=== PATIENT | female | born 1960 | race Caucasian/White ===

== ENCOUNTER 2018-05-03 14:26 | Emergency (ER) | payer OTHER ==
[~2018-05-03] VITALS: Ht 157.5 cm; Wt 52.3 kg
[~2018-05-03 14:26] MED LIST: ACETAMINOPHEN500 MG PO; ALBUTEROL SULF8.5 GM IH; ALPRAZOLAM0.5 MG PO; AMBIEN10 MG PO; ASPIR 8181 M1 PO; ASPIR-LOW81 MG PO; BENADRYL50 MG PO; BENTYL20 MG PO; DAILY VALUE1 EACH PO; ELAVIL10 MG PO; ENDOCET 10-3251 EACH PO; FLOVENT 44120 INHALA IH; HYDROCHLOROTHIA25 MG PO; HYDROCODON-ACE1 EAC4; HYDROXYZINE HCL50 MG PO; HYDROXYZINE PAM25 MG PO; HYDROXYZINE PAM50 MG PO; KEFLEX500 MG PO; KLONOPIN0.5 M1 PO; LEXAPRO10 MG PO; LOPRESSOR100 M1 PO; LOPRESSOR25 MG PO; Lipitor PO; METHADONE5 MG PO; MIRTAZAPINE15 MG PO; MIRTAZAPINE30 MG PO; MIRTAZAPINE45 MG PO; MORPHINE SULFAT15 M1 PO; MULTIPLE VITAM1 EACH PO; NORCO 5/3251 TABLET PO; NORVASC5 MG PO; OXYCODONE HCL10 MG PO; OXYCODONE HCL5 MG PO; PEPCID20 MG PO; PERCOCET 5/31 TABLET PO; PRAVASTATIN SOD40 MG PO; PRAVASTATIN SOD80 MG PO; PREDNISONE50 MG PO; PRILOSEC40 MG PO; SUCRALFATE1 GM PO; TESSALON PERLE100 MG PO; TOPAMAX25 MG PO; TOPROL XL100 MG PO; TRAZODONE HCL100 MG PO; XANAX0.5 MG PO; XANAX1 MG PO; Xanax PO; ZOFRAN ODT4 MG PO; ZOFRAN ODT8 MG PO; ZOFRAN8 MG PO; ZOLPIDEM TARTRAT5 MG PO; oxyCODONE PO
[2018-05-03 15:15] LABS: BASOPHIL (%) 0.4 % (0-1); EOSINOPHIL (%) 1.7 % (0-5); EOSINOPHIL COUNT 0.2 K/uL (0-0.3); HEMATOCRIT 46.1 % (36.0-46.0); HEMOGLOBIN 16.2 G/DL (11.9-15.5); IMMATURE GRANULOCYTE (%) 0.4 % (0.0-0.7); LYMPHOCYTE (%) 17.7 % (15-42); MCH 31.9 PG (29.0-34.0); MCHC 35.1 G/DL (30.0-36.0); MCV 90.7 FL (83-99); MONOCYTE COUNT 0.6 K/uL (0-0.8); NEUTROPHIL (%) 74.8 % (45-76); NEUTROPHIL COUNT 8.5 K/uL (1.8-6.4); PLATELET COUNT 283 K/uL (156-360); RBC DIS.WIDTH-CV 13.7 % (11.8-14.6); RBC DIS.WIDTH-SD 46.5 % (39-53); RED BLOOD COUNT 5.08 M/uL (3.80-5.20); WHITE BLOOD COUNT 11.3 K/uL (4.1-10.2)
[2018-05-03 15:28] LABS: ALBUMIN 4.2 g/dL (3.2-4.8); CHLORIDE 109 mEq/L (99-109); POTASSIUM 3.7 mEq/L (3.7-5.4); SODIUM 141 mEq/L (136-147)
[2018-05-03 15:30] LABS: GLUCOSE 106 mg/dL (70-99)
[2018-05-03 15:32] LABS: TOTAL BILIRUBIN 1.1 mg/dL (0.0-1.0)
[2018-05-03 15:34] LABS: ALKALINE PHOSPHATASE 99 IU/L (3-129); CREATININE 0.7 mg/dL (0.6-1.3); GFR ESTIMATE (CALCULATED) > 59 mL/min/
[2018-05-03 15:35] LABS: UREA NITROGEN (BUN) 8 mg/dL (9-23)
[2018-05-03 15:36] LABS: AST (GOT) 15 IU/L (2-34)
[2018-05-03 15:37] LABS: ALT (GPT) 13 IU/L (3-49)
[2018-05-03 15:43] LABS: TROP-I INTERPRETATION NEGATIVE; TROPONIN-I 0.01 ng/mL (0.0-0.30)
[2018-05-03 17:20] LABS: APPEARANCE CLEAR/COLORLESS; CSF TUBE NUMBER TUBE #4
[2018-05-03 17:25] LABS: CSF PROTEIN 61 mg/dL (15-45)
[2018-05-03 17:29] LABS: RED CELL COUNT 138 /MM^3 (0-1); WHITE CELL COUNT 4 /MM^3 (0-5)
[2018-05-03 17:58] LABS: CSF EOSINOPHILS ND % (0-25); CSF TUBE NUMBER (RECHECK) TUBE #1; MONONUCLEAR WBC'S ND % (50-90); POLYNUCLEAR WBC'S ND % (0-3)
[2018-05-03 17:59] LABS: APPEARANCE (RECHECK) PINK; RED CELL COUNT (RECHECK) 4000 /MM^3 (0-1)
[2018-05-03] MEDS ORDERED: XANAX0.5 MG PO (18:26)
[2018-05-03] MEDS ORDERED: LOPRESSOR100 M1 PO (18:26)
[2018-05-03 20:37] VITALS: BP 156/100
== END 2018-05-03 20:39 | disposition home or self-care (01) ==
LOC: EME 14:26
PROVIDERS: Emergency Medicine
PROC: 009U3ZX Drainage of Spinal Canal, Percutaneous Approach, Diagnostic (ICD-10-PCS; principal; 2018-05-03)
DX: R51 Headache (principal); I10 Essential (primary) hypertension; F17.200 Nicotine dependence, unspecified, uncomplicated; B19.20 Unspecified viral hepatitis C without hepatic coma; F41.9 Anxiety disorder, unspecified; Z79.82 Long term (current) use of aspirin
CPT/HCPCS: 70450; 80053; 84157; 84484; 85025; 87070; 87205; 89051; 99281; 99285; J0780; J1200; J2765; J7030; J7040

== ENCOUNTER 2018-05-06 09:17 | Emergency (ER) | payer OTHER ==
[~2018-05-06] VITALS: Ht 157.5 cm; Wt 51.1 kg
[2018-05-06 12:06] VITALS: BP 156/81
== END 2018-05-06 12:09 | disposition home or self-care (01) ==
LOC: EME 09:17
DX: R51 Headache (principal); I10 Essential (primary) hypertension; F41.9 Anxiety disorder, unspecified; F17.200 Nicotine dependence, unspecified, uncomplicated; Z79.82 Long term (current) use of aspirin
CPT/HCPCS: 99281; 99285; J1630; J1885

== ENCOUNTER 2018-05-15 11:30 | Emergency (ER) | payer OTHER ==
[~2018-05-15] VITALS: Ht 154.9 cm; Wt 53.3 kg
[2018-05-15 12:18] LABS: HEMATOCRIT 44.3 % (36.0-46.0); HEMOGLOBIN 15.4 G/DL (11.9-15.5); MCHC 34.8 G/DL (30.0-36.0); MCV 91.9 FL (83-99); RBC DIS.WIDTH-CV 13.5 % (11.8-14.6); RED BLOOD COUNT 4.82 M/uL (3.80-5.20); WHITE BLOOD COUNT 13.8 K/uL (4.1-10.2)
[2018-05-15 13:05] LABS: PLAT.SUFFICIENCY ADEQUATE; PLATELET COUNT 252 K/uL (156-360)
[2018-05-15 13:13] LABS: ALBUMIN 4.4 G/DL (3.2-4.8); ALKALINE PHOSPHATASE 78 IU/L (3-129); ALT (GPT) 15 IU/L (3-49); AST (GOT) 17 IU/L (2-34); CHLORIDE 109 MEQ/L (99-109); CREATININE 0.8 MG/DL (0.6-1.3); GFR ESTIMATE (CALCULATED) > 59 mL/min/; GLUCOSE 99 mg/dL (70-99); POTASSIUM 3.9 MEQ/L (3.7-5.4); SODIUM 142 MEQ/L (136-147); TOTAL BILIRUBIN 0.6 MG/DL (0.0-1.0); TOTAL PROTEIN 6.8 G/DL (6.4-8.3); UREA NITROGEN (BUN) 8 mg/dL (9-23)
[2018-05-15 14:06] LABS: APPEARANCE CLEAR ((CLEAR)); BILIRUBIN NEGATIVE; BLOOD SMALL; COLOR YELLOW ((YELLOW)); GLUCOSE (STRIP) NEGATIVE; KETONES NEGATIVE; LEUKOCYTES NEGATIVE; NITRITE NEGATIVE; PROTEIN (STRIP) NEGATIVE; UROBILINOGEN 0.2 MG/DL (0.2-1.0)
[2018-05-15 14:10] LABS: BACTERIA NONE SEEN /HPF; EPITHELIAL CELLS RARE /HPF; HYALINE CASTS 0-5 /LPF; MUCUS TRACE /LPF; RED BLOOD CELLS 0-5 /HPF (0-5); UCUL ADDED? NO; WHITE BLOOD CELLS 0-5 /HPF (0-5)
[2018-05-15] MEDS ORDERED: ZOFRAN ODT4 MG PO (14:20)
[2018-05-15 16:12] VITALS: BP 189/99
== END 2018-05-15 16:14 | disposition home or self-care (01) ==
LOC: EME 11:30
DX: E86.0 Dehydration (principal); G43.909 Migraine, unspecified, not intractable, without status migrainosus; B19.20 Unspecified viral hepatitis C without hepatic coma; F41.9 Anxiety disorder, unspecified; F17.200 Nicotine dependence, unspecified, uncomplicated; Z59.0 Homelessness; Z79.82 Long term (current) use of aspirin; Z87.19 Personal history of other diseases of the digestive system
CPT/HCPCS: 80053; 81003; 84702; 85027; 99281; 99284